=== PATIENT | male | born 1995 | race African-American/Black ===

== ENCOUNTER 2022-10-17 15:37 | Emergency (ER) | payer OTHER ==
[2022-10-17 15:46] VITALS: BP 151/82
[2022-10-17] MEDS ORDERED: PROPARACAINE 0.5% OPHTH DROPS 15 ML EACHEYE STA (16:15)
--- NOTE | 2022-10-17 16:25 | ED Physician Documentation ---
History of Present Illness - Stated complaint Stated Complaint: HEADACHE - Chief complaint Chief Complaint: Neuro - History obtained from History obtained from: Patient - History of Present Illness Timing: Today Pain level max: 0 Pain level now: 0 - Additonal information Additional information: 27-year-old male, [employer] presents to the emergency department stating that he was working with [employer] when it accidentally splashed in his left eye and mouth. Immediately flushed with water. He is currently asymptomatic but was told by his command to come get "checked out". No vision changes. Does not wear contacts. No headache, nausea, vomiting. No stinging or burning in the eyes. No tearing. Review of Systems Eyes: denies: Loss of vision, Decreased vision, Photophobia, Discharge, Irritation Ears: denies: Ear pain, Drainage/discharge Nose: denies: Rhinorrhea / runny nose, Congestion Respiratory: denies: Dyspnea, Cough, Wheezing PD PAST MEDICAL HISTORY - Past Medical History Past Medical History: No - Past Surgical History Past Surgical History: No - Allergies Allergies/Adverse Reactions: Allergies Allergy/AdvReac Type Severity Reaction Status Date / Time No Known Drug Allergies Allergy Verified 10/17/22 15:47 - Living Situation Living Arrangement: reports: At home - Social History Does the pt smoke?: No Does the pt have substance abuse?: No PD ED PE NORMAL - Vitals Vital signs reviewed: Yes - General General: Alert and oriented X 3, No acute distress, Well developed/nourished - HEENT HEENT: PERRL, EOMI, Moist mucous membranes, Pharynx benign (normal phonation. no trismus), Other (No fluorescein uptake. Normal examination of the bilateral eyes. pH 7 OU on pH testing) - Neck Neck: Supple, no meningeal sign - Cardiac Cardiac: RRR, Strong equal pulses - Respiratory Respiratory: No respiratory distress, Clear bilaterally - Abdomen Abdomen: Soft, Non tender, Non distended - Derm Derm: Warm and dry, No rash - Neuro Neuro: Alert and oriented X 3 - Psych Psych: Normal mood, Normal affect Results - Vitals Vitals: Vital Signs - 24 hr 10/17/22 15:44 Temperature 36.4 C L Heart Rate 70 Respiratory 16 Rate Blood Pressure 151/82 H O2 Saturation 99 Oxygen O2 Source Room air PD Medical Decision Making - ED course Complexity details: considered differential, d/w patient ED course: The patient is asymptomatic after a chemical exposure. MSDS appears to show that this is a minor irritant. Normal pH of the eye. No evidence of abrasion or ulceration. Normal intraoral exam as well. Patient is asymptomatic. Patient counseled regarding signs and symptoms for which I believe and urgent re-evaluation would be necessary. Patient with good understanding of and agreement to plan and is comfortable going home at this time This document was made in part using voice recognition software. While efforts are made to proofread this document, sound alike and grammatical errors may occur. Departure - Departure Disposition: 01 Home, Self Care Clinical Impression: Chemical exposure of eye Condition: Good Instructions: First Aid Chemical Exp, ED Chemical Exp Skin Follow-Up: your,doctor as needed [Other] Comments: Your exam is normal today. Please follow-up with your doctor as needed for further care. Please return if you worsen. Please return especially for changes in your vision, stinging or burning to the eyes or any other new or worrisome symptoms. Discharge Date/Time: 10/17/22 16:28
== END 2022-10-17 16:28 | disposition home or self-care (01) ==
LOC: ED 15:37
DX: Z57.5 Occupational exposure to toxic agents in other industries (principal)
CPT/HCPCS: 99282; 99283